=== PATIENT | female | born 1965 | race Caucasian/White ===

== ENCOUNTER → 2017-03-20 | Outpatient (CLI) | payer BC ==
[~2017-03-20] MED LIST: CELEXA10 MG PO; CEPHALEXIN500 M1 PO; LOESTRIN 1/20 28 DAY PO
== END ==
LOC: MC.RAD 03-09 11:40
DX: Z12.31 Encounter for screening mammogram for malignant neoplasm of breast (principal)

== ENCOUNTER → 2019-01-06 | Outpatient (CLI) | payer BC | LOC: MC.RAD 07:00 | DX: Z12.31 Encounter for screening mammogram for malignant neoplasm of breast (principal) ==